=== PATIENT | female | born 2000 | race American Indian/Alaskan Native ===

== ENCOUNTER 2019-07-31 11:02 | Emergency (ER) | payer SELFPAY ==
[2019-07-31 11:19] VITALS: BP 125/74
--- NOTE | 2019-07-31 11:29 | Emergency Department Report ---
Chief Complaint: Psych Stated Complaint: BI POLAR/NEED MEDS Time Seen by Provider: 07/31/19 11:20 - HPI History of Present Illness: Pt sts "I am bipolar. I get a shot every month. I need a note saying I am bipolar." ROS No SI/HI no hallucinosis. Otherwise neg HEENT NC/AT Neck Supple CV RRR no M,G,R Pul CTA ABD soft and N/T EXT without deformity or edema Neuro No focal deficit, A,A and O Psych Mood/emotions Nl Impression Psychiatric disorder: stable Plan Out patient clinic referral. - Exam Vital Signs: Vital Signs 07/31/19 11:17 Temperature 98.1 F Pulse Rate 98 H Respiratory 18 Rate Blood Pressure 125/74 O2 Sat by Pulse 98 Oximetry MSE screening note: Focused history and physical exam performed. Due to findings the following was ordered: ED Disposition for MSE Condition: Stable
== END 2019-08-01 02:42 | disposition left against medical advice (07) ==
LOC: ED 11:02
DX: F31.9 Bipolar disorder, unspecified (principal); Z53.21 Procedure and treatment not carried out due to patient leaving prior to being seen by health care provider